=== PATIENT | male | born 1960 ===

== ENCOUNTER 2021-03-30 17:57 | Inpatient (IN) ==
[2021-03-30 20:43] LABS: Basophils % 0.4 % (0.0-0.8); Eosinophils # 0.3 10*3/uL (0.0-0.87); Hematocrit 27.1 VOL% (42.0-52.0); Hemoglobin 8.6 GM/DL (14.0-18.0); Immature Granulocytes % 0.5 %; Immature Granulocytes Absolute 0.05 #; Lymphocytes # 1.2 10*3/uL (1.4-4.0); Lymphocytes % 12.5 % (21.2-54.2); Mean Corpuscular HGB Conc 31.7 GM/DL (32-36); Mean Corpuscular Volume 96.4 FL (87-102); Mean Platelet Volume 10.1 FL (9.6-12.0); Neutrophils % 71.6 % (38.7-73.9); Platelet Count 248 T/CUMM (130-400); Red Blood Count 2.81 MC/CUMM (3.8-5.5); Red Cell Distribution Width 14.9 % (9.3-17.3); White Blood Count 9.9 T/CUMM (4-12)
[2021-03-30 21:05] LABS: Alanine Aminotransferase 13 U/L (16-61); Alkaline Phosphatase 99 U/L (45-117); Aspartate Amino Transferase 19 U/L (0-37); Bilirubin,Total < 0.39 MG/DL (0.20-1.00); Blood Urea Nitrogen 34 MG/DL (7-18); Calcium 8.9 MG/DL (8.5-10.1); Carbon Dioxide 34 MMOL/L (21-32); Estimated Glom Filtration Rate 7 ML/MIN; Glucose 142 MG/DL (74-106); Osmolality,Calculated 288.4 MOS/KG (273-304); Potassium 3.8 MMOL/L (3.5-5.1); Sodium 140 MMOL/L (136-145); Total Protein 7.7 G/DL (6.4-8.2)
[2021-03-31] MEDS ORDERED: SIMETHICONE CHEW 125 MG TABLET PO PRN (00:01)
[2021-03-31] MEDS ORDERED: MORPHINE 2 MG/1 ML SYRINGE IV PRN (00:01)
[2021-03-31] MEDS ORDERED: DEXTROSE 50% 25 GM/50 ML SYRINGE IV PRN (00:01)
[2021-03-31] MEDS ORDERED: GLUCAGON 1 MG VIAL IM PRN (00:01)
[2021-03-31] MEDS ORDERED: ACETAMINOPHEN 325 MG TABLET PO PRN (00:01)
[2021-03-31] MEDS ORDERED: hydrALAZINE 20 MG/1 ML VIAL IV PRN (00:01)
[2021-03-31] MEDS ORDERED: LEVOFLOXACIN INJ 750 MG/150 ML PREMIX IV ONE (02:00)
[2021-03-31] MEDS ORDERED: metroNIDAZOLE INJ 500 MG/100 ML PREMIX IV SCH (03:00)
[2021-03-31] MEDS ORDERED: VANCOMYCIN INJ 1,750 MG in SODIUM CHLORIDE 0.9% 500 ML IV ONE (04:00)
[2021-03-31 05:20] LABS: Basophils % 0.3 % (0.0-0.8); Eosinophils # 0.4 10*3/uL (0.0-0.87); Eosinophils % 4.1 % (0.00-10.9); Hematocrit 28.1 VOL% (42.0-52.0); Hemoglobin 8.7 GM/DL (14.0-18.0); Immature Granulocytes % 0.5 %; Immature Granulocytes Absolute 0.05 #; Lymphocytes # 1.3 10*3/uL (1.4-4.0); Lymphocytes % 13.1 % (21.2-54.2); Mean Corpuscular Volume 98.6 FL (87-102); Mean Platelet Volume 10.1 FL (9.6-12.0); Monocytes % 11.3 % (1.7-12.7); Neutrophils % 70.7 % (38.7-73.9); Platelet Count 249 T/CUMM (130-400); Red Blood Count 2.85 MC/CUMM (3.8-5.5); Red Cell Distribution Width 15.2 % (9.3-17.3); White Blood Count 10.1 T/CUMM (4-12)
[2021-03-31 05:21] LABS: PT Patient Result 11.5 SECS (10.5-12.0); Partial Thromboplastin Time 30.8 SECS (23.8-32.1)
[2021-03-31 05:38] LABS: Calcium 9.1 MG/DL (8.5-10.1); Osmolality,Calculated 284.8 MOS/KG (273-304); Potassium 3.8 MMOL/L (3.5-5.1)
[2021-03-31 05:42] LABS: Risk Ratio 2.77
[2021-03-31] MEDS ORDERED: PNEUMOCOCCAL VACCINE (13 VALENT) 0.5 ML SYRINGE IM ONE (09:00)
[2021-03-31] MEDS: PANTOPRAZOLE 40 MG TABLET PO SCH (10:27)
[2021-03-31] MEDS: DOCUSATE SODIUM 100 MG CAPSULE PO SCH ×2 (10:28→21:32)
[2021-03-31] MEDS ORDERED: MIDAZOLAM 2 MG/2 ML VIAL ONE (12:38)
[2021-03-31] MEDS ORDERED: ONDANSETRON 4 MG/2 ML VIAL ONE (12:38)
[2021-03-31] MEDS ORDERED: propofoL 200 MG/20 ML VIAL IV ONE (12:38)
[2021-03-31] MEDS ORDERED: LIDOCAINE 2% 5 ML VIAL ONE (12:38)
[2021-03-31] MEDS ORDERED: fentaNYL 100 MCG/2 ML VIAL ONE (12:38)
[2021-03-31] MEDS ORDERED: LIDOCAINE 1% 5 ML VIAL ONE (12:46)
[2021-03-31] MEDS: SODIUM CHLORIDE 0.9% 250 ML IV SCH ×2 (13:02→13:40)
[2021-03-31] MEDS ORDERED: ETOMIDATE 40 MG/20 ML VIAL IV ONE (13:22)
[2021-03-31] MEDS ORDERED: PHENYLEPHRINE 1 MG/10 ML SYRINGE IV ONE (13:35)
[2021-03-31] MEDS ORDERED: SEVOFLURANE 1 UNIT/15 MINUTE INH ONE (13:45)
[2021-03-31] MEDS ORDERED: SODIUM CHLORIDE 0.9% 250 ML IV ONE (13:49)
[2021-03-31] MEDS: PIPERACILLIN/TAZOBACTAM 3,375 MG in SODIUM CHLORIDE 0.9% 100 ML IV SCH (15:42)
[2021-03-31] MEDS ORDERED: VANCOMYCIN INJ 500 MG in SODIUM CHLORIDE 0.9% 100 ML IV ONE (17:00)
[2021-03-31] MEDS ORDERED: VANCOMYCIN INJ 500 MG in SODIUM CHLORIDE 0.9% 100 ML IV PRN (17:00)
[2021-03-31] MEDS: ATORVASTATIN 40 MG TABLET PO SCH (21:32)
[2021-03-31] MEDS ORDERED: diphenhydrAMINE CAP 25 MG CAPSULE PO PRN (21:44)
[2021-04-01] MEDS: PIPERACILLIN/TAZOBACTAM 3,375 MG in SODIUM CHLORIDE 0.9% 100 ML IV SCH ×2 (03:03→15:51)
[2021-04-01 05:46] LABS: Basophils # 0.1 10*3/uL (0.0-0.2); Basophils % 0.7 % (0.0-0.8); Eosinophils # 0.6 10*3/uL (0.0-0.87); Eosinophils % 6.3 % (0.00-10.9); Hematocrit 30.3 VOL% (42.0-52.0); Hemoglobin 9.3 GM/DL (14.0-18.0); Immature Granulocytes % 0.6 %; Immature Granulocytes Absolute 0.05 #; Lymphocytes % 11.1 % (21.2-54.2); Mean Corpuscular HGB Conc 30.7 GM/DL (32-36); Mean Platelet Volume 10.1 FL (9.6-12.0); Monocytes % 10.2 % (1.7-12.7); Neutrophils % 71.1 % (38.7-73.9); Platelet Count 270 T/CUMM (130-400); Red Blood Count 3.03 MC/CUMM (3.8-5.5); Red Cell Distribution Width 14.8 % (9.3-17.3)
[2021-04-01 06:14] LABS: Calcium 9.5 MG/DL (8.5-10.1); Osmolality,Calculated 283.5 MOS/KG (273-304); Potassium 4.8 MMOL/L (3.5-5.1)
[2021-04-01] MEDS: PANTOPRAZOLE 40 MG TABLET PO SCH (08:55)
[2021-04-01] MEDS: DOCUSATE SODIUM 100 MG CAPSULE PO SCH ×2 (08:55→20:46)
[2021-04-01] MEDS: ASPIRIN EC 81 MG TABLET PO SCH (08:55)
[2021-04-01] MEDS: SEVELAMER CARBONATE 800 MG TABLET PO SCH (17:18)
[2021-04-01] MEDS: CINACALCET 30 MG TABLET PO SCH (20:45)
[2021-04-01] MEDS: RIVAROXABAN 2.5 MG TABLET PO SCH (20:46)
[2021-04-01] MEDS: ATORVASTATIN 40 MG TABLET PO SCH (20:46)
[2021-04-01] MEDS: buPROPion SR 150 MG TABLET PO SCH (20:46)
[2021-04-02] MEDS ORDERED: LEVOFLOXACIN INJ 500 MG/100 ML PREMIX IV SCH (02:00)
[2021-04-02] MEDS: DOCUSATE SODIUM 100 MG CAPSULE PO SCH ×2 (15:22→21:05)
[2021-04-02] MEDS: PIPERACILLIN/TAZOBACTAM 3,375 MG in SODIUM CHLORIDE 0.9% 100 ML IV SCH ×2 (15:22→16:50)
[2021-04-02] MEDS: ASPIRIN EC 81 MG TABLET PO SCH (15:22)
[2021-04-02] MEDS: LOSARTAN 25 MG TABLET PO SCH (15:22)
[2021-04-02] MEDS: SEVELAMER CARBONATE 800 MG TABLET PO SCH ×2 (15:22→16:49)
[2021-04-02] MEDS: buPROPion SR 150 MG TABLET PO SCH ×2 (15:23→21:00)
[2021-04-02] MEDS: CLOPIDOGREL 75 MG TABLET PO SCH (15:23)
[2021-04-02] MEDS: amLODIPine 10 MG TABLET PO SCH (15:23)
[2021-04-02] MEDS: PANTOPRAZOLE 40 MG TABLET PO SCH (15:23)
[2021-04-02] MEDS: RIVAROXABAN 2.5 MG TABLET PO SCH ×2 (15:23→21:01)
[2021-04-02] MEDS: CINACALCET 30 MG TABLET PO SCH (21:00)
[2021-04-02] MEDS: ATORVASTATIN 40 MG TABLET PO SCH (21:01)
[2021-04-03] MEDS: PIPERACILLIN/TAZOBACTAM 3,375 MG in SODIUM CHLORIDE 0.9% 100 ML IV SCH ×2 (03:57→15:02)
[2021-04-03] MEDS: CLOPIDOGREL 75 MG TABLET PO SCH (09:58)
[2021-04-03] MEDS: DOCUSATE SODIUM 100 MG CAPSULE PO SCH (09:58)
[2021-04-03] MEDS: PANTOPRAZOLE 40 MG TABLET PO SCH (09:58)
[2021-04-03] MEDS: RIVAROXABAN 2.5 MG TABLET PO SCH (09:58)
[2021-04-03] MEDS: buPROPion SR 150 MG TABLET PO SCH (09:58)
[2021-04-03] MEDS: SEVELAMER CARBONATE 800 MG TABLET PO SCH ×3 (09:58→18:04)
[2021-04-03] MEDS: amLODIPine 10 MG TABLET PO SCH (10:01)
[2021-04-03] MEDS: ASPIRIN EC 81 MG TABLET PO SCH (10:02)
[2021-04-03] MEDS: LOSARTAN 25 MG TABLET PO SCH (10:02)
[2021-04-03 12:19] VITALS: BP 150/67
[2021-04-03] MEDS ORDERED: VANCOMYCIN INJ 500 MG in SODIUM CHLORIDE 0.9% 100 ML IV ONE (17:00)
== END 2021-04-03 18:15 | disposition home or self-care (01) | DRG 239 ==
LOC: N.ED 17:57 → SUATTDRO 23:11 → N.EDINP 23:58 → N.5E 03-31 00:13
PROVIDERS: ADMIT Internal Medicine; ATTEND Internal Medicine

== ENCOUNTER 2021-11-30 22:45 | Inpatient (IN) ==
[2021-11-30] MEDS ORDERED: cefTRIAXone 1,000 MG in SODIUM CHLORIDE 0.9% 100 ML IV STA (23:28)
[2021-11-30] MEDS ORDERED: hydrALAZINE 20 MG/1 ML VIAL IV STA (23:29)
[2021-12-01 00:35] LABS: Basophils % 0.3 % (0.0-0.8); Eosinophils % 0.3 % (0.00-10.9); Hematocrit 28.2 VOL% (42.0-52.0); Hemoglobin 9.2 GM/DL (14.0-18.0); Immature Granulocytes % 0.6 %; Immature Granulocytes Absolute 0.06 #; Lymphocytes # 1.1 10*3/uL (1.4-4.0); Lymphocytes % 10.6 % (21.2-54.2); Mean Corpuscular HGB Conc 32.6 GM/DL (32-36); Mean Corpuscular Volume 93.1 FL (87-102); Mean Platelet Volume 10.4 FL (9.6-12.0); Monocytes # 0.4 10*3/uL (0.11-0.8); Monocytes % 4.3 % (1.7-12.7); Neutrophils % 83.9 % (38.7-73.9); Platelet Count 216 T/CUMM (130-400); Red Blood Count 3.03 MC/CUMM (3.8-5.5); Red Cell Distribution Width 14.8 % (9.3-17.3); White Blood Count 10.1 T/CUMM (4-12)
[2021-12-01 01:02] LABS: Calcium 8.5 MG/DL (8.5-10.1); Osmolality,Calculated 332.4 MOS/KG (273-304); Potassium 5.3 MMOL/L (3.5-5.1)
[2021-12-01] MEDS ORDERED: ONDANSETRON 4 MG/2 ML VIAL IV PRN (02:10)
[2021-12-01] MEDS ORDERED: LABETALOL 20 MG/4 ML SYRINGE IV STA (02:10)
[2021-12-01] MEDS ORDERED: GLUCAGON 1 MG VIAL IM PRN (02:10)
[2021-12-01] MEDS ORDERED: ACETAMINOPHEN 325 MG TABLET PO PRN (02:10)
[2021-12-01] MEDS ORDERED: DEXTROSE 10% 250 ML BAG IV PRN (02:10)
[2021-12-01] MEDS ORDERED: LABETALOL 20 MG/4 ML SYRINGE IV PRN (02:22)
[2021-12-01] MEDS ORDERED: METOPROLOL TARTRATE 5 MG/5 ML VIAL IV SCH (02:30)
[2021-12-01] MEDS ORDERED: cefTRIAXone 1,000 MG in SODIUM CHLORIDE 0.9% 100 ML IV STA (02:56)
[2021-12-01] MEDS ORDERED: ASPIRIN 325 MG TABLET PO STA (05:45)
[2021-12-01] MEDS ORDERED: HEPARIN DRIP 25,000 UNITS/500 ML PREMIX IV SCH (06:00)
[2021-12-01] MEDS: INSULIN LISPRO 100 UNIT/ML SUBCUT SCH ×4 (07:00→21:52)
[2021-12-01] MEDS: PANTOPRAZOLE 40 MG TABLET PO SCH (12:04)
[2021-12-01 12:11] LABS: INR 1.1; PT Patient Result 11.9 SECS (10.1-12.1); Partial Thromboplastin Time 30.5 SECS (23.7-32.9)
[2021-12-01 15:00] LABS: INR 1.1; PT Patient Result 12.4 SECS (10.1-12.1)
[2021-12-01 15:04] LABS: Partial Thromboplastin Time > 211.8 SECS (23.7-32.9)
[2021-12-01] MEDS: METOPROLOL SUCCINATE XL 50 MG TABLET PO SCH (16:15)
[2021-12-01] MEDS: APIXABAN 5 MG TABLET PO SCH (21:52)
[2021-12-01] MEDS: cefTRIAXone 2,000 MG in SODIUM CHLORIDE 0.9% 100 ML IV SCH (21:52)
[2021-12-01] MEDS ORDERED: cefTRIAXone 1,000 MG in SODIUM CHLORIDE 0.9% 100 ML IV SCH (22:00)
[2021-12-02 05:59] LABS: Basophils % 0.4 % (0.0-0.8); Eosinophils # 0.2 10*3/uL (0.0-0.87); Eosinophils % 2.7 % (0.00-10.9); Hematocrit 30.3 VOL% (42.0-52.0); Hemoglobin 9.7 GM/DL (14.0-18.0); Immature Granulocytes % 0.7 %; Immature Granulocytes Absolute 0.05 #; Lymphocytes # 0.7 10*3/uL (1.4-4.0); Lymphocytes % 9.2 % (21.2-54.2); Mean Platelet Volume 10.9 FL (9.6-12.0); Monocytes # 0.4 10*3/uL (0.11-0.8); Monocytes % 5.6 % (1.7-12.7); Neutrophils % 81.4 % (38.7-73.9); Platelet Count 244 T/CUMM (130-400); Red Blood Count 3.19 MC/CUMM (3.8-5.5); Red Cell Distribution Width 15.1 % (9.3-17.3); White Blood Count 7.1 T/CUMM (4-12)
[2021-12-02 06:13] LABS: Albumin 2.6 G/DL (3.4-5.0); Bilirubin,Total 0.5 MG/DL (0.20-1.00); Calcium 8.9 MG/DL (8.5-10.1); Osmolality,Calculated 332.4 MOS/KG (273-304); Potassium 5.1 MMOL/L (3.5-5.1); Total Protein 6.5 G/DL (6.4-8.2)
[2021-12-02] MEDS: INSULIN LISPRO 100 UNIT/ML SUBCUT SCH ×4 (08:43→21:35)
[2021-12-02] MEDS ORDERED: METOPROLOL SUCCINATE XL 50 MG TABLET PO ONE (09:31)
[2021-12-02] MEDS: METOPROLOL SUCCINATE XL 50 MG TABLET PO SCH (10:34)
[2021-12-02] MEDS: ASPIRIN EC 81 MG TABLET PO SCH (10:35)
[2021-12-02] MEDS: PANTOPRAZOLE 40 MG TABLET PO SCH (10:35)
[2021-12-02] MEDS: APIXABAN 5 MG TABLET PO SCH ×2 (10:35→21:22)
[2021-12-02] MEDS ORDERED: ROSUVASTATIN 20 MG TABLET PO SCH (21:00)
[2021-12-02] MEDS: cefTRIAXone 2,000 MG in SODIUM CHLORIDE 0.9% 100 ML IV SCH (21:23)
[2021-12-03 06:03] LABS: Risk Ratio 4.56; VLDL Cholesterol 20.6 MG/DL
[2021-12-03] MEDS: INSULIN LISPRO 100 UNIT/ML SUBCUT SCH ×2 (08:40→12:20)
[2021-12-03] MEDS ORDERED: METOPROLOL SUCCINATE XL 100 MG TABLET PO SCH (09:00)
[2021-12-03] MEDS: APIXABAN 5 MG TABLET PO SCH (10:02)
[2021-12-03] MEDS: PANTOPRAZOLE 40 MG TABLET PO SCH (10:02)
[2021-12-03] MEDS: ASPIRIN EC 81 MG TABLET PO SCH (10:03)
[2021-12-03 12:10] VITALS: BP 108/49
== END 2021-12-03 13:30 | disposition home or self-care (01) | DRG 919 ==
LOC: EDUNIT# → N.ED 22:45 → N.EDINP 12-01 02:10 → N.TELEN 12-01 17:10
PROVIDERS: ADMIT Internal Medicine Geriatric Medicine; ATTEND Internal Medicine Geriatric Medicine